=== PATIENT | male | born 2000 | race Caucasian/White ===

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

== ENCOUNTER → 2018-08-27 17:12 | Outpatient (CLI) | payer OTHER | END | disposition home or self-care (01) | LOC: LAB 17:12 | DX: A56.09 Other chlamydial infection of lower genitourinary tract (principal) ==

== ENCOUNTER 2018-10-08 22:41 | Emergency (ER) | payer OTHER ==
[~2018-10-08] VITALS: Ht 170.2 cm; Wt 165.6 kg
[2018-10-09] MEDS ORDERED: MEDROL8 MG PO (02:48)
[2018-10-09] MEDS ORDERED: BENADRYL25 MG PO (02:48)
[2018-10-09] MEDS ORDERED: TOPROL XL50 M1 PO (02:48)
== END 2018-10-09 02:55 ==
LOC: ER 22:41
DX: T78.1XXA Other adverse food reactions, not elsewhere classified, initial encounter (principal); R11.10 Vomiting, unspecified; X58.XXXA Exposure to other specified factors, initial encounter; I10 Essential (primary) hypertension

== ENCOUNTER → 2018-10-25 | Emergency (ER) | payer OTHER ==
[~2018-10-25] VITALS: Ht 180.3 cm; Wt 163.3 kg
[~2018-10-25] MED LIST changes: +BENADRYL25 MG PO; +MEDROL8 MG PO; +TOPROL XL50 M1 PO
== END | disposition home or self-care (01) ==
LOC: ER 19:16
DX: B34.9 Viral infection, unspecified (principal)

== ENCOUNTER 2018-12-02 16:30 | Outpatient (CLI) | payer OTHER | END 2018-12-02 16:46 | disposition home or self-care (01) | LOC: LAB 16:30 | DX: Z72.51 High risk heterosexual behavior (principal) ==

== ENCOUNTER 2018-12-17 20:20 | Emergency (ER) | payer OTHER ==
[~2018-12-17] VITALS: Ht 180.3 cm; Wt 154.2 kg
== END 2018-12-17 22:19 | disposition home or self-care (01) ==
LOC: ER 20:20
DX: B34.9 Viral infection, unspecified (principal)

== ENCOUNTER 2019-04-12 20:26 | Emergency (ER) | payer OTHER ==
[~2019-04-12] VITALS: Ht 180.3 cm; Wt 163.3 kg
== END 2019-04-12 23:00 | disposition home or self-care (01) ==
LOC: ER 20:26
DX: J11.1 Influenza due to unidentified influenza virus with other respiratory manifestations (principal)

== ENCOUNTER 2019-05-14 19:01 | Emergency (ER) | payer OTHER ==
[~2019-05-14] VITALS: Ht 170.2 cm; Wt 117.9 kg
== END 2019-05-15 04:23 | disposition home or self-care (01) ==
LOC: ER 19:01
DX: J45.998 Other asthma (principal)